=== PATIENT | female | born 1970 | race Two or more races ===

== ENCOUNTER 2018-11-27 17:29 | Emergency (ER) | payer BC, MEDICAID, OTHER ==
[~2018-11-27] VITALS: Ht 162.6 cm; Wt 69.4 kg
--- NOTE | 2018-11-27 17:34 | NUR ---
PT BIBRA FROM URGENT CARE FOR CHEST PAIN; PT AAOX4, -SOB, NAD NOTED, VSS, PENDING MD RODRIGUEZ
[2018-11-27 18:17] LABS: BASOPHILS % (AUTO) 0.4 % (0.0-2.0); EOSINOPHILS % (AUTO) 1.1 % (0.0-6.0); HEMATOCRIT 41 % (33-45); HEMOGLOBIN 13.5 g/dL (11.5-14.8); LYMPHOCYTES # (AUTO) 1.3 /CMM (0.8-4.8); LYMPHOCYTES % (AUTO) 16.8 % (20.0-44.0); MEAN CORPUSCULAR HGB CONC 33 g/dl (31.0-36.0); MEAN CORPUSCULAR VOLUME 85 fL (82-100); MONOCYTES # (AUTO) 0.6 /CMM (0.1-1.30); MONOCYTES % (AUTO) 8.6 % (2.0-12.0); NEUTROPHILS # (AUTO) 5.4 /CMM (1.8-8.9); NEUTROPHILS % (AUTO) 73.1 % (43.0-81.0); PLATELET COUNT (AUTO) 323 /CMM (150-450); RED BLOOD CELL COUNT(AUTO) 4.78 MIL/uL (4.0-5.2); WHITE BLOOD COUNT (AUTO) 7.4 K/uL (4.3-11.0)
[2018-11-27 18:25] LABS: CALCIUM, SERUM 9.1 mg/dL (8.5-10.1); CREATININE 0.7 mg/dL (0.6-1.3); POTASSIUM 3.5 mmol/L (3.5-5.1)
[2018-11-27] MEDS ORDERED: ASPIRIN 81 MG TAB.CHEW ONE (18:49)
[2018-11-27] MEDS ORDERED: ASPIRIN 81 MG TAB.CHEW PO ONE (19:00)
--- NOTE | 2018-11-27 21:18 | NUR ---
PT TO BE TRANSFERRED TO [facility] [place] ACCEPTING MD: DR. ESCALANTE NUMBER FOR REPORT: [phone] BED ASSIGNMENT: [id number]
[2018-11-27 22:20] VITALS: BP 125/78
--- NOTE | 2018-11-27 22:21 | NUR ---
PT TRANSPORTED TO [facility]; SPOKE TO RIGOBERTO SCOTT REPORT GIVEN. PT LEFT VIA AMBULANCE; IN STABLE CONDITION, VSS, REPORT GIVEN TO STAFF.
== END 2018-11-27 22:23 | disposition short-term general hospital (02) ==
LOC: ER 17:30
DX: R07.89 Other chest pain (principal); R79.89 Other specified abnormal findings of blood chemistry; I10 Essential (primary) hypertension; E78.00 Pure hypercholesterolemia, unspecified; G43.909 Migraine, unspecified, not intractable, without status migrainosus; R00.0 Tachycardia, unspecified; Z98.890 Other specified postprocedural states; Z90.49 Acquired absence of other specified parts of digestive tract
CPT/HCPCS: 36415; 71045-TC; 80048-TC; 84484-TC; 85025-TC; 85378-TC